=== PATIENT | female | born 1965 | race Caucasian/White ===

== ENCOUNTER → 2020-05-25 | Outpatient (CLI) | payer BC ==
[~2020-05-25] MED LIST: CLINDAMYCIN300 MG PO; FLUOXETINE PO; LAMICTAL200 MG PO; PRILOSEC 20MG20 MG PO; SPORANOX100 MG PO; STOMACH MED; TRAZODONE HCL150 MG PO
== END ==
LOC: COL.RAD 12:44
DX: M25.552 Pain in left hip (principal)
CPT/HCPCS: J3301; Q9967

== ENCOUNTER 2021-03-26 09:56 | Day surgery (SDC) | payer BC ==
[~2021-03-26] VITALS: Ht 182.9 cm; Wt 104.0 kg
[2021-03-26] MEDS ORDERED: NORVASC2.5 MG PO (11:21)
[2021-03-26] MEDS ORDERED: PROZAC40 MG PO (11:22)
[2021-03-26] MEDS ORDERED: TRELEGY ELLIPT1 EACH IH (11:22)
[2021-03-26] MEDS ORDERED: MELATONIN5 M1 PO (11:23)
[2021-03-26 11:24] VITALS: BP 118/88; PULSE 96; TEMP 98.5
[2021-03-26 11:26] LABS: POTASSIUM 4.2 mmol/L (3.4-5.0)
[2021-03-26 11:30] LABS: PROTHROMBIN TIME 10.9 SECONDS (9.7-12.8)
[2021-03-26 12:01] LABS: THYROID STIMULATING HORMONE 3.48 uIU/mL (0.465-4.680)
[2021-03-26 13:00] VITALS: BP 106/69; PULSE 64
[2021-03-26 13:15] VITALS: BP 118/85; PULSE 66
[2021-03-26 13:30] VITALS: BP 109/70; PULSE 68
[2021-03-26] MEDS ORDERED: PACERONE400 MG PO (13:32)
[2021-03-26 13:45] VITALS: BP 112/68; PULSE 68
[2021-03-26 14:00] VITALS: BP 116/74; PULSE 66
--- NOTE | 2021-03-26 14:20 | NUR ---
Pt ready for departure at this time. Pt has recovered from sherry/cv with no problem. Pt has remained alert and oriented with NSR on monitor rate 60's. drinking with no problem. Pt has been up with steady gait, reports feels better than when she arrived. iv dc'd with cath intact, dressing applied. to exit via wheelchair.
[2021-03-27] MEDS ORDERED: PRINIVIL2.5 MG PO (17:20)
[2021-03-27] MEDS ORDERED: FIORICET 325 MG1 TA1 PO (17:21)
== END 2021-03-26 17:58 | disposition home or self-care (01) ==
LOC: COL.CAR 09:56
PROVIDERS: Internal Medicine Interventional Cardiology
DX: I48.91 Unspecified atrial fibrillation (principal); I34.0 Nonrheumatic mitral (valve) insufficiency; I10 Essential (primary) hypertension; Z79.899 Other long term (current) drug therapy
CPT/HCPCS: J2704; J7030

== ENCOUNTER 2021-03-27 12:32 | Observation (INO) | payer BC ==
[~2021-03-27] VITALS: Ht 182.9 cm; Wt 104.0 kg
[~2021-03-27 12:32] MED LIST changes: +MELATONIN5 M1 PO; +NORVASC2.5 MG PO; +PACERONE400 MG PO; +PROZAC40 MG PO; +TRELEGY ELLIPT1 EACH IH
[2021-03-27 13:09] LABS: BASO # 0.1 (0.0-0.2); BASO % 0.6 % (0.0-2.0); EOS # 0.3 (0.0-0.7); EOS % 3.3 % (0-4.0); GRAN # 5.5 (1.4-6.5); HEMATOCRIT 41.8 % (37.0-47.0); HEMOGLOBIN 13.9 g/dl (12.5-16.0); LYMPH # 1.9 (1.2-3.4); LYMPH % 21.7 % (20.0-51.0); MEAN CELL VOLUME 96 fl (80.0-100.0); MEAN CORPUSCULAR HEMOGLOBIN 32 pg (27.0-31.0); MEAN CORPUSCULAR HGB CONC 33 g/dl (33.0-37.0); MEAN PLATELET VOLUME 10.9 fl (7.4-10.4); MONO # 0.8 (0.1-0.6); MONO % 9.2 % (1.7-9.3); PLATELET COUNT 221 K/mm3 (130-400); RED BLOOD COUNT 4.37 M/mm3 (4.10-5.30); REDCELL DISTRIBUTION WIDTH-CV 13.1 % (11.5-14.5)
[2021-03-27 13:19] LABS: ALBUMIN 4.1 gm/dL (3.5-5.0); BILIRUBIN,TOTAL 0.6 mg/dL (0.0-1.0); CALCIUM 9.2 mg/dL (8.4-10.2); CREATININE, serum 0.66 (0.52-1.25); POTASSIUM 4.4 mmol/L (3.4-5.0); TOTAL PROTEIN 7.3 gm/dL (6.4-8.2)
[2021-03-27 16:34] VITALS: BP 111/71; PULSE 58; TEMP 98.1
[2021-03-27] MEDS ORDERED: PRINIVIL2.5 MG PO (17:20)
[2021-03-27] MEDS ORDERED: FIORICET 325 MG1 TA1 PO (17:21)
--- NOTE | 2021-03-27 18:30 | NUR ---
Patient is an admit from ER. SHe is alert and oriented, her has been at bedside. Oriented patient to room. Went over her medications list and updated it in the computer. Dr Eldridge ordered a neurology consult tonight but there is nobody inspector structural bonding. Let Dr Eldridge know there is nobody on until tomorrow. No other changes at this time. Call light within reach.
--- NOTE | 2021-03-27 20:02 | NUR ---
Awake, alert, oriented x 4, c/o headache with visual disturbance (peripheral) ambulates w/o difficulty, udpated on plan of care
[2021-03-27 20:40] VITALS: BP 115/67; PULSE 65; TEMP 98.2
[2021-03-28] VITALS (7 sets, daily range): BP systolic 107–133; BP diastolic 67–89; PULSE 57–68; TEMP 97.8–98.8
[2021-03-28 06:17] LABS: BASO % 0.5 % (0.0-2.0); EOS # 0.2 (0.0-0.7); EOS % 3.8 % (0-4.0); GRAN # 3.6 (1.4-6.5); GRAN % 58.7 % (42.2-75.2); HEMATOCRIT 39.8 % (37.0-47.0); HEMOGLOBIN 13.2 g/dl (12.5-16.0); LYMPH # 1.6 (1.2-3.4); LYMPH % 26.8 % (20.0-51.0); MEAN CELL VOLUME 97 fl (80.0-100.0); MEAN CORPUSCULAR HEMOGLOBIN 32 pg (27.0-31.0); MEAN CORPUSCULAR HGB CONC 33 g/dl (33.0-37.0); MEAN PLATELET VOLUME 11.2 fl (7.4-10.4); MONO # 0.6 (0.1-0.6); PLATELET COUNT 186 K/mm3 (130-400); RED BLOOD COUNT 4.11 M/mm3 (4.10-5.30); REDCELL DISTRIBUTION WIDTH-CV 13.2 % (11.5-14.5)
[2021-03-28 06:32] LABS: CREATININE, serum 0.68 (0.52-1.25); POTASSIUM 4.3 mmol/L (3.4-5.0)
--- NOTE | 2021-03-28 12:01 | NUR ---
Sadia met with the pt who stated her preference to return home once medically stable. The pt lives at home with Ernie(ph# [phone]). The pt just had hip surgery and is currently using [facility] rehab and has appointment with them for her knee surgery as well. The pt is independent on all ADLs and uses a cane since having her hip surgery. The pt pcp is Albert Mcdonald and she uses [facility]. She has no trouble obtaining medication cost. The pt will possbile need [facility] paperwork updated, but will contact her job first. No other needs stated at this time. Sw to await further recommendations and follow up as needed. D/C:Rehab vs home.
--- NOTE | 2021-03-28 18:00 | NUR ---
Patient has been doing well today. She did have a headache, it was better after giving fioricet. She has been resting most the day. Dr Santos seen patient today, did not change anything. She is aware she has to be NPO after midnight for her MRI. She was supposed to have surgery tomorrow for a knee replacement. She called her Doctor's office to let them know she's in the hospital. No other changes at this time. Call light within reach.
--- NOTE | 2021-03-28 23:03 | NUR ---
Pt has been ok mostly all evening until recently complaing of heart burn. I called Milena about that. She ordered,Protonix IV push.
[2021-03-29 04:38] VITALS: BP 130/88; PULSE 66; TEMP 97.7
[2021-03-29 07:02] LABS: BASO % 0.5 % (0.0-2.0); EOS # 0.2 (0.0-0.7); EOS % 3.8 % (0-4.0); GRAN % 62.4 % (42.2-75.2); HEMATOCRIT 41.4 % (37.0-47.0); HEMOGLOBIN 13.7 g/dl (12.5-16.0); LYMPH # 1.5 (1.2-3.4); LYMPH % 24.3 % (20.0-51.0); MEAN CELL VOLUME 95 fl (80.0-100.0); MEAN CORPUSCULAR HEMOGLOBIN 32 pg (27.0-31.0); MEAN CORPUSCULAR HGB CONC 33 g/dl (33.0-37.0); MONO # 0.6 (0.1-0.6); MONO % 8.8 % (1.7-9.3); PLATELET COUNT 214 K/mm3 (130-400); RED BLOOD COUNT 4.35 M/mm3 (4.10-5.30); REDCELL DISTRIBUTION WIDTH-CV 12.6 % (11.5-14.5)
[2021-03-29 07:08] LABS: CALCIUM 9.3 mg/dL (8.4-10.2); CREATININE, serum 0.71 (0.52-1.25); POTASSIUM 4.7 mmol/L (3.4-5.0)
[2021-03-29 07:11] VITALS: BP 124/74; PULSE 63; TEMP 98.1
--- NOTE | 2021-03-29 09:00 | NUR ---
Patient is lying in bed, alert and oriented, VSS. Reports she is feeling good, no deterioration in sight. Dr. Brandt did rounding, no new orders. waiting for MRI. Patient is calm and NPO. No further needs at this time. Call light within reach.
[2021-03-29 11:58] VITALS: BP 136/76; PULSE 63; TEMP 98.2
--- NOTE | 2021-03-29 12:20 | NUR ---
Initial visit; Patient thanked Per Assessment Nurse for looking in on her and offering prayer, God's blessings and to keep her in Per Assessment Nurse's prayers. Per Assessment Nurse will follow up with patient while she is hospitalized.
--- NOTE | 2021-03-29 15:20 | NUR ---
Pt off the floor for MRI
--- NOTE | 2021-03-29 15:59 | NUR ---
Pt back from MRI. Pt did have some apple juice while down there due to feeling like blood sugar was getting low. Telemetry put back on at this time
--- NOTE | 2021-03-29 16:09 | NUR ---
Pt reports feeling as if her blood sugar is low. Checked blood sugar, 102. Gave some apple juice, claudia crackers and peanut butter. Educated her on room service. Pt is tearful at this time, just reported feeling hungry and needing something to eat.
[2021-03-29 16:17] VITALS: BP 154/86; PULSE 55; TEMP 97.8
--- NOTE | 2021-03-29 17:45 | NUR ---
Pt was given zofran for complaints of feeling nauseated. Shortly after, pt reported feeling better. She was able to eat and then took a shower per her request. Pts has been at bedside since arriving back from MRI. No other needs verbalized, will continue to monitor
[2021-03-29 19:39] VITALS: BP 122/77; PULSE 65; TEMP 98.1
--- NOTE | 2021-03-29 21:13 | NUR ---
Pt has been good. Pain rated 4/10. Vss. Will continue to monitor.
[2021-03-29 23:40] VITALS: BP 123/74; PULSE 61; TEMP 97.3
[2021-03-30 03:41] VITALS: BP 129/72; PULSE 58; TEMP 97.6
[2021-03-30 08:00] VITALS: BP 136/82; PULSE 60; TEMP 98.2
--- NOTE | 2021-03-30 08:52 | NUR ---
Patient is in bed, awake and oriented x4, vss, no nausea, vomiting or pain. No dizziness, normal vision. Patient is getting breakfast with no problem. Meds provided. No further needs at this time. Call light within reach.
--- NOTE | 2021-03-30 11:21 | NUR ---
Follow-up visit; Patient thanked Rails Developer for looking in on her again, wishing her well and offering God's blessings.
[2021-03-30 11:53] VITALS: BP 138/82; PULSE 62; TEMP 98.9
--- NOTE | 2021-03-30 15:40 | NUR ---
Pt resting with eyes closed, even non labored breathing
[2021-03-30 16:00] VITALS: BP 131/81; PULSE 63; TEMP 98.5
--- NOTE | 2021-03-30 16:31 | NUR ---
Pt doing okay at this time. She did wake with complaints of a headache, prn given. Boyfriend at bedside. Educated on room service and that she can reorder meal if what she receives is not good. No other needs, will continue to monitor
--- NOTE | 2021-03-30 17:07 | NUR ---
Pt up walking in the halls. She does walk with a strong limp due to her left knee pain. She does do well though otherwise. Boyfriend continues to be present in the room.
--- NOTE | 2021-03-30 18:39 | NUR ---
Patient is resting in bed with boyfriend in the room. She has being doing ok along the day, some nausea in the afternoon. No reporting problens of vision.
[2021-03-30 19:31] VITALS: BP 138/86; PULSE 66; TEMP 98.1
--- NOTE | 2021-03-30 21:55 | NUR ---
Pt has been well and in good spirit. Pain rated 2/10. Vss. Will continue to monitor.
[2021-03-30 23:36] VITALS: BP 136/73; PULSE 55; TEMP 97
[2021-03-31 03:55] VITALS: BP 130/70; PULSE 61; TEMP 98
[2021-03-31 06:49] LABS: BASO % 0.5 % (0.0-2.0); EOS # 0.2 (0.0-0.7); EOS % 3.7 % (0-4.0); GRAN # 3.8 (1.4-6.5); GRAN % 61.8 % (42.2-75.2); HEMATOCRIT 42.5 % (37.0-47.0); HEMOGLOBIN 14.1 g/dl (12.5-16.0); LYMPH # 1.5 (1.2-3.4); LYMPH % 24.5 % (20.0-51.0); MEAN CELL VOLUME 96 fl (80.0-100.0); MEAN CORPUSCULAR HEMOGLOBIN 32 pg (27.0-31.0); MEAN CORPUSCULAR HGB CONC 33 g/dl (33.0-37.0); MEAN PLATELET VOLUME 10.9 fl (7.4-10.4); MONO # 0.6 (0.1-0.6); MONO % 9.3 % (1.7-9.3); PLATELET COUNT 204 K/mm3 (130-400); RED BLOOD COUNT 4.44 M/mm3 (4.10-5.30); REDCELL DISTRIBUTION WIDTH-CV 12.5 % (11.5-14.5)
[2021-03-31 07:04] LABS: ALBUMIN 3.9 gm/dL (3.5-5.0); CALCIUM 9.3 mg/dL (8.4-10.2); CREATININE, serum 0.88 (0.52-1.25); PHOSPHOROUS 4.3 mg/dL (2.5-4.5); POTASSIUM 4.6 mmol/L (3.4-5.0)
[2021-03-31 07:24] VITALS: BP 135/78; PULSE 63; TEMP 98.5
--- NOTE | 2021-03-31 09:10 | NUR ---
Patient is in bed, alert and oriented. Reports having a good night and not headache. Reports no problems with vision. Morning meds provided. No further needs at this time. Call light within reach.
--- NOTE | 2021-03-31 10:42 | NUR ---
Per Hospitalist team called over to [facility] to speak wiht Dr. Davison's nurse, she states that there is no coverage for the surgeons at this time and the doctor will return from vacation tomorrow. Hospitalist team aware.
[2021-03-31 11:54] VITALS: BP 152/82; PULSE 65; TEMP 97.5
--- NOTE | 2021-03-31 12:01 | NUR ---
SW attended rounds with physician and team. Patient is awaiting surgery. SW will continue to follow.
[2021-03-31 16:00] VITALS: BP 143/86; PULSE 90; TEMP 98.3
--- NOTE | 2021-03-31 17:47 | NUR ---
Patient is in room with her boyfriend. She is doing good all day, just waiting for decitions about anticoagulation medication. No complains of pain at this time. Shift report will be given to shift mgr to continue care.
[2021-03-31 20:07] VITALS: BP 125/78; PULSE 64; TEMP 98
--- NOTE | 2021-03-31 22:55 | NUR ---
pt has been ok but stated that she is upset about the way the staff and were talking about her outside. Pain rated 0/10. VSS.Will continue to monitor.
[2021-03-31 23:19] VITALS: BP 125/68; PULSE 60; TEMP 97.7
[2021-04-01 05:14] VITALS: BP 137/79; PULSE 59; TEMP 97.8
[2021-04-01] MEDS ORDERED: ELIQUIS 5MG PO (07:37)
[2021-04-01 08:50] VITALS: BP 151/87; PULSE 61; TEMP 98.5
--- NOTE | 2021-04-01 10:54 | NUR ---
Follow-up visit; Patient thanked Slat Twister for coming in again to check on her. She is doing 'ok' though somewhat concerned about her health and upcoming surgical procedure. Heather requested prayer again this morning. Slat Twister offered prayer for strength, courage and continued cynthia and for a successful surgical procedure and rapid and thorough healing.
--- NOTE | 2021-04-01 11:00 | NUR ---
Patient is doing well this am. Spoke with Her general surgeon office and they said it was fine to take a blood thinner with a PPI. Patient is independent in the room. Had a slight headache this morning, PRN medications given as ordered. No other changes at this time. Call light within reach.
[2021-04-01] MEDS ORDERED: PROTONIX 40MG T40 MG PO (11:57)
[2021-04-01 12:21] VITALS: BP 144/90; PULSE 67; TEMP 98.4
--- NOTE | 2021-04-01 14:15 | NUR ---
Patient is discharging home. Discharge instructions discussed with patient. INT discontinued. Explained when follow up appointments are, no questions verbalized. Discussed her discharge medications with her. Belongings packed up and sent with patient. Copies of discharge instrucitons sent with patient. Patient walked out with this nurse.
== END 2021-04-01 14:15 | disposition home or self-care (01) ==
LOC: COL.ER 12:32 → SURG 15:13
PROVIDERS: Emergency Medicine; Nurse Practitioner Primary Care; ADMIT Student in an Organized Health Care Education/Training Program
DX: H54.62 Unqualified visual loss, left eye, normal vision right eye (principal); I48.91 Unspecified atrial fibrillation; I10 Essential (primary) hypertension; J44.9 Chronic obstructive pulmonary disease, unspecified; F32.9 Major depressive disorder, single episode, unspecified; E66.9 Obesity, unspecified; M17.12 Unilateral primary osteoarthritis, left knee; G43.819 Other migraine, intractable, without status migrainosus; Z79.899 Other long term (current) drug therapy; Z87.891 Personal history of nicotine dependence
CPT/HCPCS: 99222-AI; 99233-AI; C9113; G0378; J2405; Q9967

== ENCOUNTER 2021-04-28 15:24 | Inpatient (IN) | payer BC ==
[~2021-04-28] VITALS: Ht 183 cm; Wt 107.7 kg
[~2021-04-28 15:24] MED LIST changes: +ELIQUIS 5MG PO; +FIORICET 325 MG1 TA1 PO; +PRINIVIL2.5 MG PO; +PROTONIX 40MG T40 MG PO
[2021-05-04] VITALS (8 sets, daily range): BP systolic 100–140; BP diastolic 62–90; PULSE 48–63; TEMP 97–98.6
[2021-05-04] MEDS ORDERED: LOVENOX 4040 MG/0.4 SQ (05:58)
[2021-05-04] MEDS ORDERED: CORDARONE200 MG/TAB PO (05:59)
[2021-05-04] MEDS ORDERED: VITAMIN C500 MG PO (05:59)
[2021-05-04] MEDS ORDERED: IRON TABLETS325 MG PO (06:00)
[2021-05-04] MEDS ORDERED: FOLIC ACID0.8 MG PO (06:00)
[2021-05-04] MEDS ORDERED: VITAMIN D31000 IU PO (06:01)
--- NOTE | 2021-05-04 09:35 | NUR ---
PT ARRIVED FROM OR WITH TOTAL LEFT KNEE. PT IS ORIENTED BUT SLEEPY. PT ORIENTED TO ROOM AND FLOOR. PT INSTRUCTED NOT TO GET UP WITHOUT ASSISTNACE. PT HAS CALL LIGHT.
--- NOTE | 2021-05-04 20:00 | NUR ---
PATIENT IS ALERT AND ORIENTED X4.PATIENT GOT UP TO TAKE WALK. STEADY GAIT, AMBULATED 100 FEET. PATIENT LINENS CHANGED. PATIENT HAS 18G IV TO LEFT FOREARM. PATIENT HAS BULKY DRESSING WITH ALBERTO WRAP. KNEE ELEVATED WITH ICE AND TEDS/SCDS ON. PATIENT COMPLAINS OF PAIN AFTER WALK AND GIVEN PAIN MEDS PER ORDERS. NO FURTHER NEEDS AT THIS TIME. HEAD TO TOE ASSESSMENT COMPLETE. CALL LIGHT WITHIN REACH.
[2021-05-05 03:33] VITALS: BP 123/59; PULSE 55; TEMP 97.8
--- NOTE | 2021-05-05 06:22 | NUR ---
PATIENT DID WELL THROUGHOUT NIGHT. AMBULATED 150 FEET. AMBULATED TO BATHROOM THROUGHOUT THE NIGHT. PAIN MEDS GIVEN PER ORDERS. SCDS AND GUERO HOSE BILATERALLY. KNEE ELEVATED AND ICE PLACED. WILL REPORT TO DAY SHIFT.
[2021-05-05 07:31] VITALS: BP 133/67; PULSE 60; TEMP 98.3
[2021-05-05 08:28] LABS: HEMOGLOBIN 10.2 g/dl (12.5-16.0)
[2021-05-05 08:36] LABS: HEMATOCRIT 30.9 % (37.0-47.0)
--- NOTE | 2021-05-05 09:06 | NUR ---
PT EATING BREAKFAST. OUT TO [place] WITH THERAPY AMBULATING WITH STEADY GAIT. PT WOULD LIKE TO GO HOME LATER TODAY. DRESSING TO RIGHT KNEE CDI.
--- NOTE | 2021-05-05 09:33 | NUR ---
Initial visit (this stay); Patient remembers Gambreler from prior hospitalization and requests that Gambreler pray with her and continue to keep her in Gambreler's prayers. Gambreler was blessed to do so.
[2021-05-05 12:01] VITALS: BP 147/66; BP 157/73; PULSE 61; TEMP 98.2
--- NOTE | 2021-05-05 13:36 | NUR ---
Plan is to return home with family support in [facility]. SW met with patient about care and with permission spoke with sister Cristina in the room. Brandi reports that she will be staying with ehr sister for a while to support her care. . Patient reports that her PCP is Dr. Srinivasan and last seen approx 3 weeks ago. Patient reports that she uses a can and walker and has not concern with getting in the home has ramp to home. [place] reports that she uses a mail script and [place]. Nurse was able to answer questions about obtaining medications. SW offered exteneded supports through case management. Patient reports she has the supports and her OPT is setup for rehab already. NF>
--- NOTE | 2021-05-05 17:16 | NUR ---
DISCHARGE INSTRUCTIONS PROVIDED TO PT AND , QUESTIONS SOLICITED AND ANSWERED. PT TAKEN TO POV PER WHEEL CHAIR.
== END 2021-05-05 17:18 | disposition home or self-care (01) | DRG 470 ==
LOC: INPTSU 05-04 05:21 → SURG 05-04 05:21
PROVIDERS: ADMIT Orthopaedic Surgery Sports Medicine
PROC: 0SRD069 Replacement of Left Knee Joint with Oxidized Zirconium on Polyethylene Synthetic Substitute, Cemented, Open Approach (ICD-10-PCS; principal; 2021-05-04 07:30)
DX: M17.12 Unilateral primary osteoarthritis, left knee (principal)
CPT/HCPCS: A9284; C1713; C1776; J0690; J1100; J1170; J1885; J2250; J2405; J2704; J2795; J3010; J7120

== ENCOUNTER → 2022-05-03 | Outpatient (CLI) | payer BC ==
[~2022-05-03] MED LIST changes: +CORDARONE200 MG/TAB PO; +FOLIC ACID0.8 MG PO; +IRON TABLETS325 MG PO; +LOVENOX 4040 MG/0.4 SQ; +VITAMIN C500 MG PO; +VITAMIN D31000 IU PO
== END ==
LOC: COL.RAD 11:31
DX: R10.2 Pelvic and perineal pain (principal); Z90.710 Acquired absence of both cervix and uterus

== ENCOUNTER 2022-05-30 07:40 | Emergency (ER) | payer BC ==
[~2022-05-30] VITALS: Ht 182.9 cm; Wt 109.1 kg
[2022-05-30 07:50] VITALS: TEMP 97.7
[2022-05-30 08:16] LABS: BASO # 0.1 K/mm3 (0.0-0.2); BASO % 0.5 % (0.0-2.0); EOS # 0.4 K/mm3 (0.0-0.7); EOS % 4.3 % (0.0-4.0); GRAN # 6.6 K/mm3 (1.4-6.5); GRAN % 68.8 % (42.2-75.2); HEMATOCRIT 42.1 % (37.0-47.0); HEMOGLOBIN 14.5 g/dl (12.5-16.0); LYMPH # 1.6 K/mm3 (1.2-3.4); LYMPH % 16.5 % (20.0-51.0); MEAN CELL VOLUME 93 fl (80.0-100.0); MEAN CORPUSCULAR HEMOGLOBIN 32 pg (27-31); MEAN CORPUSCULAR HGB CONC 34 g/dl (33.0-37.0); MEAN PLATELET VOLUME 10.2 fl (7.4-10.4); MONO # 0.9 K/mm3 (0.1-0.6); MONO % 9.6 % (1.7-9.3); PLATELET COUNT 280 K/mm3 (130-400); RED BLOOD COUNT 4.53 M/mm3 (4.10-5.30); REDCELL DISTRIBUTION WIDTH-CV 12.4 % (11.5-14.5)
[2022-05-30 08:33] LABS: BILIRUBIN,TOTAL 0.6 mg/dL (0.2-1.2); CALCIUM 9.4 mg/dL (8.4-10.2); CREATININE, serum 0.75 mg/dL (0.57-1.11); POTASSIUM 4.4 mmol/L (3.5-4.5); TOTAL PROTEIN 7.4 gm/dL (6.2-8.1)
[2022-05-30 08:39] LABS: TROPONIN-I 0.012 ng/mL (0.00-0.033)
[2022-05-30] MEDS ORDERED: ZOFRAN ODT4 MG PO (10:45)
[2022-05-30 11:03] VITALS: BP 137/83; PULSE 75
== END 2022-05-30 11:03 | disposition home or self-care (01) ==
LOC: COL.ER 07:40
PROVIDERS: Personal Emergency Response Attendant
DX: R06.00 Dyspnea, unspecified (principal); I48.91 Unspecified atrial fibrillation; Z28.310 Unvaccinated for COVID-19; Z79.01 Long term (current) use of anticoagulants
CPT/HCPCS: J2405; J7030